=== PATIENT | female | born 1995 | race Caucasian/White ===

== ENCOUNTER 2021-01-26 02:15 | Inpatient (IN) | payer BC, MEDICAID ==
[2021-01-26] MEDS ORDERED: Nalbuphine 10 MG/1 ML Vial IVPUSH PRN (15:31)
[2021-01-26] MEDS ORDERED: Ondansetron 4 MG/2 ML SDV IVPUSH PRN (15:31)
[2021-01-26] MEDS ORDERED: Sodium Chloride 0.9% 10 ML Syringe FLUSH PRN (15:31)
--- NOTE | 2021-01-26 15:37 | PCM.LDHP ---
L&D History of Present Illness - General Date of Service: 01/26/21 Admit Problem/Dx: Patient Status Order with Admit Dx/Problem 01/26/21 15:32 Patient Status [ADT] Routine Admission Diagnosis/Problem Admission Diagnosis/Problem Gestational hypertension Source of Information: Patient History Limitations: Reports: No Limitations - History of Present Illness Introduction:: Patient is a 25 y/o at 38 5/7 wks who presents from clinic for IOL after findings of 2 mild range BP's. Is feeling well. no signs/symptoms of labor. 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: 0 LMP (Approximate): Social & Family History - Tobacco Use Tobacco Use Status *Q: Never Tobacco User - Alcohol Use Alcohol Use History: No - Recreational Drug Use Recreational Drug Use: No H&P Review of Systems - Review of Systems: Review Of Systems: See Below General: Reports: No Symptoms Pulmonary: Reports: No Symptoms Cardiovascular: Reports: No Symptoms Gastrointestinal: Reports: No Symptoms Genitourinary: Reports: No Symptoms Musculoskeletal: Reports: No Symptoms Skin: Reports: No Symptoms Neurological: Reports: No Symptoms L&D Exam - Exam Exam: See Below - Vital Signs Vital Signs: Last Vital Signs Temp 36.8 C 01/26/21 15:01 Pulse 85 01/26/21 15:01 Resp 16 01/26/21 15:01 BP 141/101 H 01/26/21 15:01 Pulse Ox 100 01/26/21 15:01 Weight: 86.183 kg - OB Specific Contraction Intensity: Irritability Movement: Active Heart Tones: Present Heart Tones per Min: 135 Heart Rate (FHR) Variability: Moderate (6-25 bmp) Presentation: Vertex - Bernstein Score Bernstein Score Cervix Position: Midposition Bernstein Score Consistency: Soft Bernstein Score Effacement: 51-70% Bernstein Score Dilation: 1-2 cm Bernstein Score Infant's Station: -2 Bernstein Score Total: 7 - Exam General: Alert, Oriented, Cooperative Lungs: Clear to Auscultation, Normal Respiratory Effort Cardiovascular: Regular Rate, Regular Rhythm GI/Abdominal Exam: Soft, Non-Tender Genitourinary: Normal external exam Extremities: Pedal Edema Skin: Warm, Dry, Intact - Problem List (1) 38 weeks gestation of SNOMED Code(s): 04059573 ICD Code: Z3A.38 - 38 WEEKS GESTATION OF Status: Acute Current Visit: Yes Problem List Initiated/Reviewed/Updated: Yes Orders Last 24hrs: Active Orders 24 hr Category Date Time Status Patient Status [ADT] Routine ADT 01/26/21 15:32 Ordered Activity as Tolerated [RC] PFP Care 01/26/21 15:32 Ordered Communication Order [RC] ASDIRECTED Care 01/26/21 15:32 Ordered Communication Order [RC] ASDIRECTED Care 01/26/21 15:32 Ordered Communication Order [RC] ASDIRECTED Care 01/26/21 15:32 Ordered Heart Tones [RC] ASDIRECTED Care 01/26/21 15:32 Ordered Monitoring [RC] INTERMITTENT Care 01/26/21 15:32 Ordered Non Stress Test [RC] PER UNIT ROUTINE Care 01/26/21 15:32 Ordered Notify Provider [RC] ASDIRECTED Care 01/26/21 15:32 Ordered Notify Provider [RC] PRN Care 01/26/21 15:32 Ordered Peripheral IV Care [RC] . DIRECTED Care 01/26/21 15:32 Ordered Vaginal Exam [RC] ASDIRECTED Care 01/26/21 15:32 Ordered Vital Signs [RC] ASDIRECTED Care 01/26/21 15:32 Ordered Regular Diet [DIET] Diet 01/26/21 Dinner Ordered ALANINE AMINOTRANSFERASE,ALT [CHEM] Routine Lab 01/26/21 15:31 Ordered ASPARTATE AMNIOTRANSFERASE,AST [CHEM] Routine Lab 01/26/21 15:31 Ordered CBC W/O DIFF,HEMOGRAM [HEME] Routine Lab 01/26/21 15:31 Ordered CREATININE W/GFR [CHEM] Routine Lab 01/26/21 15:31 Ordered PROTEIN/CREATININE RATIO,URINE [URCHEM] Routine Lab 01/26/21 15:31 Ordered RAPID PLASMA REAGIN,RPR [CHEM] Routine Lab 01/26/21 15:32 Ordered TYPE AND SCREEN [BBK] Routine Lab 01/26/21 15:31 Ordered Lactated Ringers [Ringers, Lactated] 1,000 ml Med 01/26/21 15:45 Ordered IV ASDIRECTED Nalbuphine [Nubain] Med 01/26/21 15:31 Ordered 10 mg IVPUSH Q2H PRN Ondansetron [Zofran] Med 01/26/21 15:31 Ordered 4 mg IVPUSH Q4H PRN Oxytocin/Lactated Ringers [Pitocin in LR 10 Units/1,000 Med 01/26/21 15:45 Ordered ML] 10 unit in 1,000 ml IV .CONTINUOUS Oxytocin/Lactated Ringers [Pitocin in LR 10 Units/1,000 Med 01/26/21 15:45 Ordered ML] 10 unit in 1,000 ml IV TITRATE Sodium Chloride 0.9% [Saline Flush] Med 01/26/21 15:31 Ordered 10 ml FLUSH ASDIRECTED PRN Electronic Heart Tones Ext w TOCO [WOMSER] Oth 01/26/21 15:32 Ordered Routine Electronic Heart Tones Internal [WOMSER] Per Unit Oth 01/26/21 15:32 Ordered Routine Peripheral IV Insertion Adult [OM.PC] Routine Oth 01/26/21 15:32 Ordered Resuscitation Status Routine Resus Stat 01/26/21 15:31 Ordered Medication Orders Oxytocin/Lactated Ringer's (Pitocin In Lr 10 Units/1,000 Ml) 10 unit in 1,000 mls @ 12 mls/hr IV TITRATE JENNI; Protocol Oxytocin/Lactated Ringer's (Pitocin In Lr 10 Units/1,000 Ml) 10 unit in 1,000 mls @ 500 mls/hr IV .CONTINUOUS JENNI Lactated Ringer's (Ringers, Lactated) 1,000 mls @ 40 mls/hr IV ASDIRECTED JENNI Nalbuphine HCl (Nubain) 10 mg IVPUSH Q2H PRN PRN Reason: Pain Ondansetron HCl (Zofran) 4 mg IVPUSH Q4H PRN PRN Reason: Nausea/Vomiting Sodium Chloride (Saline Flush) 10 ml FLUSH ASDIRECTED PRN PRN Reason: Keep Vein Open Assessment/Plan Comment:: * Patient with consistent mild range BP's. Will order labs to ensure no findings c/w severe disease. Reviewed if consistently elevated severe BP's or lab abnormalities would need to treat with magnesium. She agrees * Labs done * GBS negative, no need for antibiotics * Pitocin/Soria bulb. Will AROM when able. * Pain management per patient preference * Anticipate
[2021-01-26] MEDS ORDERED: Oxytocin/Lactated Ringers 10 UNIT/1,000 ML BAG IV SCH ×2 (15:45)
[2021-01-26] MEDS: Lactated Ringers 1,000 ML IV SCH ×3 (16:04→20:46)
[2021-01-26] MEDS ORDERED: Bupivacaine/fentaNYL/NS 100 ML Bag EPIDUR PRN (16:43)
[2021-01-26] MEDS ORDERED: fentaNYL 100 MCG/2 ML SDV EPIDUR PRN (16:43)
[2021-01-26] MEDS ORDERED: diphenhydrAMINE 50 MG/ML SDV IVPUSH PRN (16:43)
[2021-01-26] MEDS ORDERED: ePHEDrine 50 MG/ML SDV IVPUSH PRN (16:43)
--- NOTE | 2021-01-26 16:49 | PCM.PREANE ---
Preanesthetic Assessment - Procedure Proposed Procedure: therese - Anesthesia/Transfusion/Family Hx Anesthesia History: No Prior Anesthesia Family History of Anesthesia Reaction: No Transfusion History: No Prior Transfusion(s) - Review of Systems General: No Symptoms Pulmonary: No Symptoms Cardiovascular: No Symptoms Gastrointestinal: No Symptoms Neurological: No Symptoms Other: Reports: None - Physical Assessment Vital Signs: Last Vital Signs Temp 98.3 F 01/26/21 15:01 Pulse 85 01/26/21 15:01 Resp 16 01/26/21 15:01 BP 141/101 H 01/26/21 15:01 Pulse Ox 100 01/26/21 15:01 Height: 5 ft 9 in Weight: 86.183 kg ASA Class: 2 Mental Status: Alert & Oriented x3 Airway Class: Mallampati = 1 Dentition: Reports: Normal Dentition Thyro-Mental Finger Breadths: 3 Mouth Opening Finger Breadths: 3 ROM/Head Extension: Full Lungs: Clear to Auscultation, Normal Respiratory Effort Cardiovascular: Regular Rate, Regular Rhythm - Lab Values: Laboratory Last Values WBC 9.67 K/mm3 (3.98-10.04) 01/26/21 16:04 RBC 4.66 M/mm3 (3.98-5.22) 01/26/21 16:04 Hgb 12.7 gm/dl (11.2-15.7) 01/26/21 16:04 Hct 39.1 % (34.1-44.9) 01/26/21 16:04 MCV 83.9 fl (79.4-94.8) 01/26/21 16:04 MCH 27.3 pg (25.6-32.2) 01/26/21 16:04 MCHC 32.5 g/dl (32.2-35.5) 01/26/21 16:04 RDW Std Deviation 39.2 fL (36.4-46.3) 01/26/21 16:04 Plt Count 257 K/mm3 (182-369) 01/26/21 16:04 MPV 12.0 fl (9.4-12.3) 01/26/21 16:04 - Allergies Allergies/Adverse Reactions: Allergies Allergy/AdvReac Type Severity Reaction Status Date / Time No Known Allergies Allergy Verified 01/26/21 14:49 - Blood Blood Available: No - Acknowledgements Anesthesia Type Planned: Epidural Pt an Appropriate Candidate for the Planned Anesthesia: Yes Alternatives and Risks of Anesthesia Discussed w Pt/Guardian: Yes Pt/Guardian Understands and Agrees with Anesthesia Plan: Yes PreAnesthesia Questionnaire - Past Health History Medical/Surgical History: Denies Medical/Surgical History Cardiovascular History: Reports: None Respiratory History: Reports: None Gastrointestinal History: Reports: GERD (with preg) 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 Para: 0 Musculoskeletal History: Reports: None Oncologic (Cancer) History: Reports: None - SUBSTANCE USE Tobacco Use Status *Q: Never Tobacco User Tobacco Use Within Last Twelve Months: No Second Hand Smoke Exposure: No Number of Drinks Per Day: 0 Recreational Drug Use History: No - CURRENT (IN HOUSE) MEDS Current Meds: Current Medications Diphenhydramine HCl (Benadryl) 25 mg IVPUSH Q6H PRN PRN Reason: pruritis Ephedrine Sulfate (Ephedrine Sulfate) 5 mg IVPUSH ASDIRECTED PRN PRN Reason: Hypotension Fentanyl (Sublimaze) 100 mcg EPIDUR Q3H PRN PRN Reason: Pain Fentanyl/Bupivacaine HCl (Fentanyl/Bupivacaine/Ns 2 Mcg-0.125% 100 Ml) 100 ml EPIDUR ASDIRECTED PRN PRN Reason: Pain Oxytocin/Lactated Ringer's (Pitocin In Lr 10 Units/1,000 Ml) 10 unit in 1,000 mls @ 12 mls/hr IV TITRATE JENNI; Protocol Last Admin: 01/26/21 16:09 Dose: 2 munits/min, 12 mls/hr Documented by: Oxytocin/Lactated Ringer's (Pitocin In Lr 10 Units/1,000 Ml) 10 unit in 1,000 mls @ 500 mls/hr IV .CONTINUOUS JENNI Lactated Ringer's (Ringers, Lactated) 1,000 mls @ 40 mls/hr IV ASDIRECTED JENNI Last Admin: 01/26/21 16:04 Dose: 40 mls/hr Documented by: Nalbuphine HCl (Nubain) 10 mg IVPUSH Q2H PRN PRN Reason: Pain Ondansetron HCl (Zofran) 4 mg IVPUSH Q4H PRN PRN Reason: Nausea/Vomiting Sodium Chloride (Saline Flush) 10 ml FLUSH ASDIRECTED PRN PRN Reason: Keep Vein Open
--- NOTE | 2021-01-26 18:09 | PCM.PNLD ---
Labor Progress Note - VS & Meds Vital Signs: Last Vital Signs Temp 36.8 C 01/26/21 15:01 Pulse 85 01/26/21 15:01 Resp 16 01/26/21 15:01 BP 141/101 H 01/26/21 15:01 Pulse Ox 100 01/26/21 15:01 Active Medications: Current Medications Diphenhydramine HCl (Benadryl) 25 mg IVPUSH Q6H PRN PRN Reason: pruritis Ephedrine Sulfate (Ephedrine Sulfate) 5 mg IVPUSH ASDIRECTED PRN PRN Reason: Hypotension Fentanyl (Sublimaze) 100 mcg EPIDUR Q3H PRN PRN Reason: Pain Fentanyl/Bupivacaine HCl (Fentanyl/Bupivacaine/Ns 2 Mcg-0.125% 100 Ml) 100 ml EPIDUR ASDIRECTED PRN PRN Reason: Pain Oxytocin/Lactated Ringer's (Pitocin In Lr 10 Units/1,000 Ml) 10 unit in 1,000 mls @ 12 mls/hr IV TITRATE JENNI; Protocol Last Titration: 01/26/21 17:57 Dose: 6 munits/min, 36 mls/hr Documented by: Oxytocin/Lactated Ringer's (Pitocin In Lr 10 Units/1,000 Ml) 10 unit in 1,000 mls @ 500 mls/hr IV .CONTINUOUS JENNI Lactated Ringer's (Ringers, Lactated) 1,000 mls @ 40 mls/hr IV ASDIRECTED JENNI Last Admin: 01/26/21 16:04 Dose: 40 mls/hr Documented by: Nalbuphine HCl (Nubain) 10 mg IVPUSH Q2H PRN PRN Reason: Pain Ondansetron HCl (Zofran) 4 mg IVPUSH Q4H PRN PRN Reason: Nausea/Vomiting Sodium Chloride (Saline Flush) 10 ml FLUSH ASDIRECTED PRN PRN Reason: Keep Vein Open - Uterine Contractions Uterine Monitoring Mode: External [place] Contraction Intensity: Irritability - Monitoring Monitor Mode: External Ultrasound Heart Rate (FHR) Baseline: 125 Heart Rate (FHR) Variability: Moderate (6-25 bmp) Accelerations: Present, 15x15 Decelerations: None Strip Review: Category I - Vaginal Exam Dilation (cm): 4-5 Effacement (Percent): 75 Station: -1 Cervical Position: Midposition - Labor Progress (Free Text) Labor Progress: Doing well. Rates contractions a 4/10. Soria bulb easily removed. AROM performed. One severe range BP. Others upper limit mild. Labs appropriate. Reviewed if has another severe range BP would need to start magnesium. She expressed understanding.
--- NOTE | 2021-01-26 23:34 | PCM.PNLD ---
Labor Progress Note - VS & Meds Vital Signs: Last Vital Signs Temp 36.8 C 01/26/21 15:01 Pulse 85 01/26/21 15:01 Resp 16 01/26/21 15:01 BP 141/101 H 01/26/21 15:01 Pulse Ox 100 01/26/21 15:01 Active Medications: Current Medications Diphenhydramine HCl (Benadryl) 25 mg IVPUSH Q6H PRN PRN Reason: pruritis Ephedrine Sulfate (Ephedrine Sulfate) 5 mg IVPUSH ASDIRECTED PRN PRN Reason: Hypotension Last Admin: 01/26/21 20:30 Dose: 5 mg Documented by: Fentanyl (Sublimaze) 100 mcg EPIDUR Q3H PRN PRN Reason: Pain Last Admin: 01/26/21 19:23 Dose: 100 mcg Documented by: Fentanyl/Bupivacaine HCl (Fentanyl/Bupivacaine/Ns 2 Mcg-0.125% 100 Ml) 100 ml EPIDUR ASDIRECTED PRN PRN Reason: Pain Last Admin: 01/26/21 19:23 Dose: 100 ml Documented by: Oxytocin/Lactated Ringer's (Pitocin In Lr 10 Units/1,000 Ml) 10 unit in 1,000 mls @ 12 mls/hr IV TITRATE JENNI; Protocol Last Titration: 01/26/21 21:30 Dose: 0 munits/min, 0 mls/hr Documented by: Oxytocin/Lactated Ringer's (Pitocin In Lr 10 Units/1,000 Ml) 10 unit in 1,000 mls @ 500 mls/hr IV .CONTINUOUS JENNI Lactated Ringer's (Ringers, Lactated) 1,000 mls @ 40 mls/hr IV ASDIRECTED JENNI Last Admin: 01/26/21 20:46 Dose: 40 mls/hr Documented by: Nalbuphine HCl (Nubain) 10 mg IVPUSH Q2H PRN PRN Reason: Pain Ondansetron HCl (Zofran) 4 mg IVPUSH Q4H PRN PRN Reason: Nausea/Vomiting Sodium Chloride (Saline Flush) 10 ml FLUSH ASDIRECTED PRN PRN Reason: Keep Vein Open - Uterine Contractions Uterine Monitoring Mode: External [place] Station Contraction Intensity: Moderate to Strong - Monitoring Monitor Mode: External Ultrasound Heart Rate (FHR) Baseline: 120 Heart Rate (FHR) Variability: Moderate (6-25 bmp) Accelerations: Present, 15x15 Decelerations: Early, Late, Intermittent (<50% x 20 min) Strip Review: Category II - Vaginal Exam Dilation (cm): 8-9 Effacement (Percent): 80 Station: 1 Cervical Position: Anterior - Labor Progress (Free Text) Labor Progress: Patient received epidural around 1930. At that time pitocin at 6. Had some late decelerations so dropped to 2. Then began having lower BP's and late decelerations. At 2014 BP 104/54. Asked RN to given ephedrine at that time. FHR did respond. Later on had several other late decelerations and so pitocin stopped completely. Patient checked now at 2245 and found to be 8-9 and almost +2 position. Put into hands and knees with resolution of decelerations. At 2315 brought back out of hands and knees and exam felt to be similar. IUPC placed. Of note baby with +accelerations/response to checks at 2245, 2315, and with placement of IUPC. Patient and aware of tracings findings. Will continue to monitor closely
[2021-01-27] MEDS ORDERED: Bupivacaine 0.25% 10 ML SDV ONE
[2021-01-27] MEDS: Lactated Ringers 1,000 ML IV SCH (00:49)
[2021-01-27] MEDS ORDERED: Witch Hazel Medicated Pads 40/Jar TOP PRN (06:34)
[2021-01-27] MEDS ORDERED: Benzocaine/Menthol 20%-0.5% Spray 56 GM Canister TOP PRN (06:34)
[2021-01-27] MEDS ORDERED: Ibuprofen 600 MG Tab PO PRN (07:14)
[2021-01-27] MEDS ORDERED: Docusate Sodium 100 MG Cap PO PRN (07:14)
[2021-01-27] MEDS ORDERED: Acetaminophen 325 MG Tab PO PRN (07:14)
--- NOTE | 2021-01-27 07:19 | PCM.DEL ---
L & D Note - General Info Date of Service: 01/27/21 - Delivery Note Labor: Induced by ARM, Induced by Oxytocin Cervical Ripening Method: Balloon Device Delivery Outcome: Livebirth Infant Delivery Method: Spontaneous Vaginal Delivery-Single Infant Delivery Mode: Spontaneous Presentation: Right Occiput Anterior (CANDI) Nuchal Cord: None Anesthesia Type: Epidural Amniotic Fluid Description: Clear Episiotomy Type: None Laceration: 2nd Degree, Perineal Suture type: Vicryl Suture size: 2-0 Placenta: Intact, Spontaneous Cord: 3 Vessels Estimated Blood Loss: 200 Resuscitation Needed: Yes [place]: Bulb Syringe, Stimulated, Warmed, [place] Used, Warmer Used Delivery Comments (Free Text/Narrative):: Patient found to be complete and began pushing. With maternal pushing effort head delivered from an CANDI presentation. No nuchal cord present. With gentle downward traction the shoulders and body delivered. Infant placed up on maternal abdomen. Cord clamped and cut. Cord blood obtained. Placenta allowed time to separate and expelled intact. Inspection of the perineum showed a 2nd degree laceration which was repaired with a 2-0 Vicryl in the typical fashion - General Info Date of Service: 01/27/21 - Patient Data Vitals - Most Recent: Last Vital Signs Temp 36.8 C 01/26/21 15:01 Pulse 85 01/26/21 15:01 Resp 16 01/26/21 15:01 BP 141/101 H 01/26/21 15:01 Pulse Ox 100 01/26/21 15:01 Weight - Most Recent: 86.183 kg - Problem List & Annotations (1) 38 weeks gestation of SNOMED Code(s): 06883401 Code(s): Z3A.38 - 38 WEEKS GESTATION OF Status: Acute Current Visit: Yes (2) Gestational hypertension SNOMED Code(s): 627355204 Code(s): O13.9 - GESTATIONAL HTN W/O SIGNIFICANT PROTEINURIA, UNSP TRIMESTER Status: Acute Current Visit: Yes Qualifiers: Trimester: third trimester Qualified Code(s): O13.3 - Gestational [-induced] hypertension without significant proteinuria, third trimester (3) Vaginal delivery SNOMED Code(s): 518134908 Code(s): O80 - ENCOUNTER FOR FULL-TERM UNCOMPLICATED DELIVERY Status: Acute Current Visit: Yes - Problem List Review Problem List Initiated/Reviewed/Updated: Yes - My Orders Last 24 Hours: My Active Orders 01/26/21 15:31 Resuscitation Status Routine 01/27/21 Breakfast Regular Diet [DIET] 01/27/21 07:14 Activity as Tolerated [RC] PER UNIT ROUTINE Vital Signs [RC] ASDIRECTED Acetaminophen [TylenoL] 650 mg PO Q4H PRN Benzocaine/Menthol [Dermoplast Pain Relief [place]] See Dose Instructions TOP ASDIRECTED PRN Docusate Sodium [Colace] 100 mg PO BID PRN Ibuprofen [Motrin] 600 mg PO Q6H PRN witch Carlee [Tucks] 1 pad TOP ASDIRECTED PRN Assess Lochia [WOMSER] Per Unit Routine Assess Uterine Involution [WOMSER] Per Unit Routine Breast Pump [WOMSER] Per Unit Routine Ice Therapy [OM.PC] Per Unit Routine Perineal Care [OM.PC] Per Unit Routine Peripheral IV Discontinue [OM.PC] Routine Sitz Bath [OM.PC] Per Unit Routine 01/27/21 07:15 Heat Therapy [OM.PC] PRN 01/28/21 07:15 Heat Therapy [OM.PC] PRN - Assessment Assessment:: PPD#0 - Plan Plan:: * Routine cares * Monitor BP's closely after delivery * Breast feeding * Discharge home in 1-2 days
[2021-01-27] MEDS: Witch Hazel Medicated Pads 40/Jar TOP PRN (08:00)
--- NOTE | 2021-01-27 08:05 | PCM48HPAN ---
Post Anesthesia Note - EVALUATION WITHIN 48HRS OF ANESTHETIC Vital Signs in Normal Range: Yes Patient Participated in Evaluation: Yes Respiratory Function Stable: Yes Airway Patent: Yes Cardiovascular Function Stable: Yes Hydration Status Stable: Yes Pain Control Satisfactory: Yes Nausea and Vomiting Control Satisfactory: Yes Mental Status Recovered: Yes Vital Signs: Last Vital Signs Temp 36.8 C 01/26/21 15:01 Pulse 85 01/26/21 15:01 Resp 16 01/26/21 15:01 BP 141/101 H 01/26/21 15:01 Pulse Ox 100 01/26/21 15:01 - COMMENTS/OBSERVATIONS Free Text/Narrative:: no anesthesia complications noted
[2021-01-27] MEDS: Benzocaine/Menthol 20%-0.5% Spray 56 GM Canister TOP PRN (16:15)
--- NOTE | 2021-01-28 07:01 | PCM.PNPP ---
- General Info Date of Service: 01/28/21 Functional Status: Reports: Pain Controlled, Tolerating Diet, Ambulating, Urinating - Review of Systems Pulmonary: Reports: No Symptoms Cardiovascular: Reports: No Symptoms Gastrointestinal: Reports: No Symptoms Genitourinary: Reports: No Symptoms Musculoskeletal: Reports: No Symptoms Neurological: Reports: No Symptoms - Patient Data Vital Signs - Most Recent: Last Vital Signs Temp 36.7 C 01/28/21 04:57 Pulse 84 01/28/21 04:57 Resp 15 01/28/21 04:57 BP 142/87 H 01/28/21 04:57 Pulse Ox 100 01/28/21 04:57 Weight - Most Recent: 86.183 kg I&O - Last 24 Hours: Intake & Output 01/27/21 01/28/21 01/28/21 22:59 06:59 14:59 Output Total 2750 800 Balance -2750 -800 Med Orders - Current: Current Medications Acetaminophen (Acetaminophen 325 Mg Tab) 650 mg PO Q4H PRN PRN Reason: mild pain or fever Benzocaine/Menthol (Benzocaine/Menthol 20%-0.5% [place] 56 Gm Canister) 0 gm TOP ASDIRECTED PRN PRN Reason: Perineal Comfort Measure Last Admin: 01/27/21 16:15 Dose: 1 can Documented by: Docusate Sodium (Docusate Sodium 100 Mg Cap) 100 mg PO BID PRN PRN Reason: Constipation Ibuprofen (Ibuprofen 600 Mg Tab) 600 mg PO Q6H PRN PRN Reason: Mild pain or fever Witch Carlee (Witch Carlee Medicated Pads 40/Jar) 1 pad TOP ASDIRECTED PRN PRN Reason: Perineal Comfort Measure Last Admin: 01/27/21 08:00 Dose: 1 tub Documented by: Discontinued Medications Benzocaine/Menthol (Benzocaine/Menthol 20%-0.5% [place] 56 Gm Canister) 1 gm TOP ASDIRECTED PRN PRN Reason: Pain Bupivacaine HCl (Bupivacaine 0.25% 10 Ml Sdv) 10 ml .ROUTE .STK-MED ONE Stop: 01/27/21 00:01 Diphenhydramine HCl (Diphenhydramine 50 Mg/Ml Sdv) 25 mg IVPUSH Q6H PRN PRN Reason: pruritis Ephedrine Sulfate (Ephedrine 50 Mg/Ml Sdv) 5 mg IVPUSH ASDIRECTED PRN PRN Reason: Hypotension Last Admin: 01/26/21 20:30 Dose: 5 mg Documented by: Fentanyl (Fentanyl 100 Mcg/2 Ml Sdv) 100 mcg EPIDUR Q3H PRN PRN Reason: Pain Last Admin: 01/26/21 19:23 Dose: 100 mcg Documented by: Fentanyl/Bupivacaine HCl (Bupivacaine/Fentanyl/Ns 100 Ml Bag) 100 ml EPIDUR ASDIRECTED PRN PRN Reason: Pain Last Admin: 01/26/21 19:23 Dose: 100 ml Documented by: Oxytocin/Lactated Ringer's (Pitocin In Lr 10 Units/1,000 Ml) 10 unit in 1,000 mls @ 12 mls/hr IV TITRATE JENNI; Protocol Last Titration: 01/27/21 00:36 Dose: 4 munits/min, 24 mls/hr Documented by: Oxytocin/Lactated Ringer's (Pitocin In Lr 10 Units/1,000 Ml) 10 unit in 1,000 mls @ 500 mls/hr IV .CONTINUOUS JENNI Lactated Ringer's (Ringers, Lactated) 1,000 mls @ 40 mls/hr IV ASDIRECTED JENNI Last Admin: 01/27/21 00:49 Dose: 40 mls/hr Documented by: Nalbuphine HCl (Nalbuphine 10 Mg/1 Ml Vial) 10 mg IVPUSH Q2H PRN PRN Reason: Pain Ondansetron HCl (Ondansetron 4 Mg/2 Ml Sdv) 4 mg IVPUSH Q4H PRN PRN Reason: Nausea/Vomiting Last Admin: 01/27/21 01:54 Dose: 4 mg Documented by: Sodium Chloride (Sodium Chloride 0.9% 10 Ml Syringe) 10 ml FLUSH ASDIRECTED PRN PRN Reason: Keep Vein Open Witch Carlee (Witch Carlee Medicated Pads 40/Jar) 1 pad TOP ASDIRECTED PRN PRN Reason: pain - Interaction Disposition, : [place] in Room with Family Infant Feeding: Attempted ; Nursed Fair/Poor Support Person: Significant Other - Recovery Exam Fundal Tone: Firm Fundal Level: 1 Fingerbreadths Below Umbilicus Fundal Placement: Midline Lochia Amount: Small Lochia Color: Rubra/Red Perineum Description: Intact, Minimal Bruising/Swelling Other Perinuem Description: 1 degree Episiotomy/Laceration: None Bladder Status: Voiding Urinary Elimination: Voided - Exam General: Alert, Oriented, Cooperative GI/Abdominal Exam: Soft, Non-Tender Extremities: Normal Inspection Skin: Warm, Dry, Intact - Problem List & Annotations (1) 38 weeks gestation of SNOMED Code(s): 64782325 Code(s): Z3A.38 - 38 WEEKS GESTATION OF Status: Acute (2) Gestational hypertension SNOMED Code(s): 617819299 Code(s): O13.9 - GESTATIONAL HTN W/O SIGNIFICANT PROTEINURIA, UNSP TRIMESTER Status: Acute Qualifiers: Trimester: third trimester Qualified Code(s): O13.3 - Gestational [-induced] hypertension without significant proteinuria, third trimester (3) Vaginal delivery SNOMED Code(s): 682698647 Code(s): O80 - ENCOUNTER FOR FULL-TERM UNCOMPLICATED DELIVERY Status: Acute - Problem List Review Problem List Initiated/Reviewed/Updated: Yes - My Orders Last 24 Hours: My Active Orders 01/27/21 Breakfast Regular Diet [DIET] 01/27/21 07:14 Acetaminophen [TylenoL] 650 mg PO Q4H PRN Benzocaine/Menthol [Dermoplast Pain Relief [place]] See Dose Instructions TOP ASDIRECTED PRN Docusate Sodium [Colace] 100 mg PO BID PRN Ibuprofen [Motrin] 600 mg PO Q6H PRN witch Carlee [Tucks] 1 pad TOP ASDIRECTED PRN 01/27/21 07:14 Activity as Tolerated [RC] PER UNIT ROUTINE Vital Signs [RC] Q4HR Assess Lochia [WOMSER] Per Unit Routine Assess Uterine Involution [WOMSER] Per Unit Routine Breast Pump [WOMSER] Per Unit Routine Ice Therapy [OM.PC] Per Unit Routine Perineal Care [OM.PC] Per Unit Routine Peripheral IV Discontinue [OM.PC] Routine Sitz Bath [OM.PC] Per Unit Routine 01/27/21 07:15 Heat Therapy [OM.PC] PRN 01/28/21 07:15 Heat Therapy [OM.PC] PRN 01/28/21 13:00 Ready for Discharge [RC] PER UNIT ROUTINE - Assessment Assessment:: PPD#1 - Plan Plan:: * Routine cares * Monitor BP's closely. Have been normal to mild range. Will need BP check 1 week after delivery. * Breast feeding * Discharge home today per patient preference
[2021-01-28] MEDS: Witch Hazel Medicated Pads 40/Jar TOP PRN (10:37)
[2021-01-28] MEDS: Benzocaine/Menthol 20%-0.5% Spray 56 GM Canister TOP PRN (10:38)
--- NOTE | 2021-01-28 13:00 | PCM.DCSUM1 ---
Discharge Summary - Discharge Data Discharge Date: 01/28/21 Discharge Disposition: Home, Self-Care 01 Condition: Good - Referral to Home Health Primary Care Physician: Destini Dixon MD - Discharge Diagnosis/Problem(s) (1) 38 weeks gestation of SNOMED Code(s): 18974503 ICD Code: Z3A.38 - 38 WEEKS GESTATION OF Status: Acute (2) Gestational hypertension SNOMED Code(s): 862035767 ICD Code: O13.9 - GESTATIONAL HTN W/O SIGNIFICANT PROTEINURIA, UNSP TRIMESTER Status: Acute Qualifiers: Trimester: third trimester Qualified Code(s): O13.3 - Gestational [-induced] hypertension without significant proteinuria, third trimester (3) Vaginal delivery SNOMED Code(s): 018140775 ICD Code: O80 - ENCOUNTER FOR FULL-TERM UNCOMPLICATED DELIVERY Status: Acute - Patient Summary/Data Complications: None Consults: None Recommended Follow-up Testing/Procedures: Follow up in 1 week for BP check and 3 weeks for check Hospital Course: 25 y/o at 38 5/7 wks induced for gestational HTN. Done with pitocin and AROM. Progressed well to complete dilation and underwent an uncomplicated . See delivery note. BP's remained normal to mild range. Was discharged home on PPD#1 per patient preference - Patient Instructions Diet: Regular Diet as Tolerated Activity: As Tolerated Activity, Other: Pelvic rest for 6 weeks Driving: May Drive Today Showering/Bathing: May Shower Showering/Bathing, Other: May Bathe Notify Provider of: Fever, Increased Pain, Swelling and Redness, Drainage, Nausea and/or Vomiting - Discharge Plan *PRESCRIPTION DRUG MONITORING PROGRAM REVIEWED*: No *COPY OF PRESCRIPTION DRUG MONITORING REPORT IN PATIENT PRESLEY: No Home Medications: Home Meds RX: Acetaminophen [Tylenol] 650 mg PO Q4H PRN tablet 01/28/21 [Rx] RX: Docusate Sodium [Colace] 100 mg PO BID PRN cap 01/28/21 [Rx] RX: Ibuprofen [Motrin] 600 mg PO Q6H PRN tablet 01/28/21 [Rx] Patient Handouts: Preeclampsia and Eclampsia, Hypertension During , [id number], Hypertension, Care After Vaginal Delivery Referrals: Destini Dixon MD [Primary Care Provider] - (1 week for BP check 3 weeks for check ) - Discharge Summary/Plan Comment DC Time >30 min.: No - Patient Data Vitals - Most Recent: Last Vital Signs Temp 37.0 C 01/28/21 07:21 Pulse 89 01/28/21 07:21 Resp 14 01/28/21 07:21 BP 138/84 01/28/21 07:21 Pulse Ox 99 01/28/21 07:21 Weight - Most Recent: 86.183 kg I&O - Last 24 hours: Intake & Output 01/27/21 01/28/21 01/28/21 22:59 06:59 14:59 Intake Total 120 Output Total 2750 800 800 Balance -2630 -800 -800 Med Orders - Current: Current Medications Acetaminophen (Acetaminophen 325 Mg Tab) 650 mg PO Q4H PRN PRN Reason: mild pain or fever Benzocaine/Menthol (Benzocaine/Menthol 20%-0.5% [place] 56 Gm Canister) 0 gm TOP ASDIRECTED PRN PRN Reason: Perineal Comfort Measure Last Admin: 01/28/21 10:38 Dose: 1 can Documented by: Docusate Sodium (Docusate Sodium 100 Mg Cap) 100 mg PO BID PRN PRN Reason: Constipation Ibuprofen (Ibuprofen 600 Mg Tab) 600 mg PO Q6H PRN PRN Reason: Mild pain or fever Witch [place] (Witch [place]dee Medicated Pads 40/Jar) 1 pad TOP ASDIRECTED PRN PRN Reason: Perineal Comfort Measure Last Admin: 01/28/21 10:37 Dose: 1 tub Documented by: Discontinued Medications Benzocaine/Menthol (Benzocaine/Menthol 20%-0.5% [place] 56 Gm Canister) 1 gm TOP ASDIRECTED PRN PRN Reason: Pain Bupivacaine HCl (Bupivacaine 0.25% 10 Ml Sdv) 10 ml .ROUTE .STK-MED ONE Stop: 01/27/21 00:01 Diphenhydramine HCl (Diphenhydramine 50 Mg/Ml Sdv) 25 mg IVPUSH Q6H PRN PRN Reason: pruritis Ephedrine Sulfate (Ephedrine 50 Mg/Ml Sdv) 5 mg IVPUSH ASDIRECTED PRN PRN Reason: Hypotension Last Admin: 01/26/21 20:30 Dose: 5 mg Documented by: Fentanyl (Fentanyl 100 Mcg/2 Ml Sdv) 100 mcg EPIDUR Q3H PRN PRN Reason: Pain Last Admin: 01/26/21 19:23 Dose: 100 mcg Documented by: Fentanyl/Bupivacaine HCl (Bupivacaine/Fentanyl/Ns 100 Ml Bag) 100 ml EPIDUR ASDIRECTED PRN PRN Reason: Pain Last Admin: 01/26/21 19:23 Dose: 100 ml Documented by: Oxytocin/Lactated Ringer's (Pitocin In Lr 10 Units/1,000 Ml) 10 unit in 1,000 mls @ 12 mls/hr IV TITRATE JENNI; Protocol Last Titration: 01/27/21 00:36 Dose: 4 munits/min, 24 mls/hr Documented by: Oxytocin/Lactated Ringer's (Pitocin In Lr 10 Units/1,000 Ml) 10 unit in 1,000 mls @ 500 mls/hr IV .CONTINUOUS JENNI Lactated Ringer's (Ringers, Lactated) 1,000 mls @ 40 mls/hr IV ASDIRECTED JENNI Last Admin: 01/27/21 00:49 Dose: 40 mls/hr Documented by: Nalbuphine HCl (Nalbuphine 10 Mg/1 Ml Vial) 10 mg IVPUSH Q2H PRN PRN Reason: Pain Ondansetron HCl (Ondansetron 4 Mg/2 Ml Sdv) 4 mg IVPUSH Q4H PRN PRN Reason: Nausea/Vomiting Last Admin: 01/27/21 01:54 Dose: 4 mg Documented by: Sodium Chloride (Sodium Chloride 0.9% 10 Ml Syringe) 10 ml FLUSH ASDIRECTED PRN PRN Reason: Keep Vein Open Aissatou Hubbard (Witch Haydee Medicated Pads 40/Jar) 1 pad TOP ASDIRECTED PRN PRN Reason: pain
== END 2021-01-28 14:40 | disposition home or self-care (01) | DRG 560 ==
LOC: JD.OB 02:15 → OBSVTOIN 01-27 02:15 → JD.OB 01-27 02:16
PROVIDERS: ADMIT Obstetrics & Gynecology; ATTEND Obstetrics & Gynecology
PROC: 10E0XZZ Delivery of Products of Conception, External Approach (ICD-10-PCS; principal; 2021-01-27)
PROC: 10907ZC Drainage of Amniotic Fluid, Therapeutic from Products of Conception, Via Natural or Artificial Opening (ICD-10-PCS; 2021-01-27)
PROC: 3E0P7VZ Introduction of Hormone into Female Reproductive, Via Natural or Artificial Opening (ICD-10-PCS; 2021-01-27)
PROC: 0U7C7ZZ Dilation of Cervix, Via Natural or Artificial Opening (ICD-10-PCS; 2021-01-27)
PROC: 3E0R3BZ Introduction of Anesthetic Agent into Spinal Canal, Percutaneous Approach (ICD-10-PCS; 2021-01-27)
PROC: 0KQM0ZZ Repair Perineum Muscle, Open Approach (ICD-10-PCS; 2021-01-27)
PROC: 10H07YZ Insertion of Other Device into Products of Conception, Via Natural or Artificial Opening (ICD-10-PCS; 2021-01-27)
DX: O13.4 Gestational [pregnancy-induced] hypertension without significant proteinuria, complicating childbirth (principal); Z3A.38 38 weeks gestation of pregnancy; Z37.0 Single live birth; O70.1 Second degree perineal laceration during delivery; O76 Abnormality in fetal heart rate and rhythm complicating labor and delivery; Z20.822 Contact with and (suspected) exposure to COVID-19
CPT/HCPCS: 01967; 36415; 51701; 51702; 59025; 59409; 82565; 82570; 84156; 84450; 84460; 85027; 86592; 86850; 86900; 86901; A9270-GY; J2405; J2590; J3010; J3490; J7120; U0002